=== PATIENT | female | born 1950 | race African-American/Black ===

== ENCOUNTER 2016-10-01 08:41 | Day surgery (SDC) | payer BC ==
[2016-09-24 08:44] LABS: BASOPHILS 0.3 %; BASOPHILS ABSOLUTE 0.02 10/3/uL (0.0-0.16); EOSINOPHILS 3.1 %; HEMATOCRIT 40.3 % (36.0-48.0); HEMOGLOBIN 13.5 g/dL (12.0-16.0); IMMATURE GRANULOCYTES 0.2 %; IMMATURE GRANULOCYTES ABSOLUTE 0.01 10/3/uL (0.0-0.11); LYMPHOCYTES 50.4 %; LYMPHOCYTES ABSOLUTE 3.23 10/3/uL (0.67-4.30); MEAN CORPUS HGB CONC 33.5 g/dL (32.0-36.0); MEAN CORPUSCULAR HEMOGLOB 30.8 pg (26.0-34.0); MEAN CORPUSCULAR VOLUME 91.8 fL (80-100); MEAN PLATELET VOLUME 9.6 fL (9.2-13.0); MONOCYTES 7.6 %; MONOCYTES ABSOLUTE 0.49 10/3/uL (0.21-1.20); NEUTROPHILS 38.4 %; NEUTROPHILS ABSOLUTE 2.46 10/3/uL (2.02-8.40); PLATELET COUNT 226 10/3/uL (150-400); RBC DISTRIBUTION WIDTH 13.7 % (12.0-16.0); RED CELL COUNT 4.39 10/6/uL (4.0-5.6); WHITE BLOOD CELLS 6.4 10/3/uL (4.5-10.5)
[2016-09-24 08:47] LABS: MANUAL DIFF NO %
[2016-09-24 09:01] LABS: CALCIUM, SERUM 9.8 MG/DL (8.5-10.4); CHLORIDE, SERUM 110 MMOL/L (96-112); CREATININE 0.71 MG/DL (0.55-1.02); GFR AFRICAN AMERICAN 104 ML/MIN (>=60); GFR NON AFRICAN AMERICAN 89 ML/MIN (>=60); POTASSIUM, SERUM 3.7 MMOL/L (3.5-5.3); SODIUM, SERUM 145 MMOL/L (135-148)
[2016-09-24 09:02] LABS: BUN (BLOOD UREA NITROGEN) 14 MG/DL (6-23); CO2 (CARBON DIOXIDE) 29 MMOL/L (24-34); GLUCOSE, SERUM 78 MG/DL (60-99)
--- NOTE | ~2016-10-01 | OP ---
Record Of Operation [facility] [address] [place]. [address] NAME: KESHA LEIVA : 52 STATUS : [facility]#: [id number] AGE: 66 ADM/REG DATE : 10/01/16 MR#: [id number] REPORT SERV DATE: 10/02/16 DICTATED BY: CAMERON MERCHANT DATE: 10/02/16 REPORT STATUS : Draft TRANSCRIBED BY: MODArley DATE: 10/02/16 DATE OF PROCEDURE: 10/01/2016 PREOPERATIVE DIAGNOSIS: Substernal goiter, left thyroid lobe. POSTOPERATIVE DIAGNOSIS: Substernal goiter, left thyroid lobe. PROCEDURE PERFORMED: Left thyroid lobectomy. INDICATIONS AND SIGNIFICANT HISTORY: The patient is a 66-year-old female with significant history of multinodular goiter and benign needle biopsy finding left thyroid lobe nodule. The left thyroid lobe nodule has continued to increase in size, and is approximately 4.3 cm and retrosternal in location. The patient was felt to benefit from surgical excision, and was scheduled for such. OPERATIVE PROCEDURE AND FINDINGS: After informed consent was obtained, the patient was brought to the operating room, and placed on the operating room table in the supine position. At which point, general endotracheal anesthesia was induced by Anesthesia Service utilizing a NIMs nerve monitoring tube. The NIMs nerve monitor was set up to monitor laryngeal musculature throughout the course of the case. A horizontal skin incision was made through the natural skin crease, and the subplatysmal flaps were elevated superiorly and inferiorly after prepping and draping the neck in standard sterile fashion. The Harmonic scalpel was then used to divide the midline raphae and the strap muscles were retracted laterally. This exposed the nodular thyroid isthmus. Blunt and sharp dissection were used to dissect around the left thyroid lobe dividing the middle thyroid veins with bipolar cautery. Harmonic Scalpel then used free superior and inferior pole vasculature. The thyroid isthmus was then divided adjacent to the right thyroid lobe and a combination of sharp and blunt dissection was used to elevate the right thyroid lobe from its position in the right neck. Once the specimen had been removed, and bleeding was controlled with bipolar cautery, the nerve was found to be stimulable along the left side. Specimen was sent to pathology where benign-appearing multinodular goiter was identified. The patient was then turned back toward Anesthesia, aroused from anesthesia, and taken to the Postanesthesia Care Unit in satisfactory condition after closure of the wound in multiple layers consisting of deep Vicryl suture followed by closure of the skin with Prolene followed by application of Steri-Strips. ESTIMATED BLOOD LOSS: Less than 20 mL. IV FLUIDS: Per Anesthesia. NINO/STEFANI Cameron Merchant M.D. Record Of Operation [address] [address] NAME: KESHA LEIVA : 52 STATUS : [facility] PAT#: [id number] AGE: 66 ADM/REG DATE : 10/01/16 MR#: [id number] REPORT SERV DATE: 10/02/16 DICTATED BY: CAMERON MERCHANT DATE: 10/02/16 REPORT STATUS : Draft TRANSCRIBED BY: STEFANI DATE: 10/02/16 / [id number] CC: Jamison Jung
[~2016-10-01 08:41] MED LIST: ASAB PO; COZ50 PO; FISH-EPA1000 MG PO; KLOR-CON 1010 MEQ PO; L40 PO; PRAVACHOL40 MG PO; VITAMIN D1000 UNI1 PO; VITC500 PO
[2016-10-01 09:17] LABS: INTERNATIONAL NORMAL RATI 1.1 UNITS (-); PARTIAL THROMBO TIME 28.1 SEC (22.5-37.2); PROTIME (NOT ORD) 13.7 SEC (12.0-14.5)
== END 2016-10-01 18:40 | disposition home or self-care (01) ==
LOC: SDC 08:41
PROVIDERS: Otolaryngology
PROC: 0GTG0ZZ Resection of Left Thyroid Gland Lobe, Open Approach (ICD-10-PCS; principal; 2016-10-01 10:30)
DX: E04.9 Nontoxic goiter, unspecified (principal); I10 Essential (primary) hypertension; E78.5 Hyperlipidemia, unspecified; E78.00 Pure hypercholesterolemia, unspecified; G47.33 Obstructive sleep apnea (adult) (pediatric); M19.90 Unspecified osteoarthritis, unspecified site; Z98.51 Tubal ligation status; Z98.890 Other specified postprocedural states; Z83.49 Family history of other endocrine, nutritional and metabolic diseases; Z82.3 Family history of stroke; Z80.9 Family history of malignant neoplasm, unspecified; Z99.89 Dependence on other enabling machines and devices; Z88.6 Allergy status to analgesic agent; Z88.8 Allergy status to other drugs, medicaments and biological substances; Z79.82 Long term (current) use of aspirin; Z79.899 Other long term (current) drug therapy
CPT/HCPCS: 80048; 85025; 85610; 85730; 88307; 88331; 93005; A9270-GY; J0690; J2250; J2270; J2405; J2550; J2710; J3010